=== PATIENT | female | born 1980 | race Caucasian/White ===

== ENCOUNTER 2019-05-24 08:57 | Outpatient (CLI) | payer OTHER | END 2019-05-24 08:58 | disposition home or self-care (01) | LOC: CTENTCT 08:57 | PROVIDERS: ATTEND Specialist | DX: J32.9 Chronic sinusitis, unspecified (principal) | CPT/HCPCS: 70486 ==

== ENCOUNTER 2020-08-31 13:58 | Outpatient (CLI) | payer BC | END 2020-08-31 13:59 | disposition home or self-care (01) | LOC: CTENTCT 13:58 | PROVIDERS: ATTEND Specialist | DX: J32.8 Other chronic sinusitis (principal) | CPT/HCPCS: 70486 ==